=== PATIENT | male | born 1965 | race Caucasian/White ===

== ENCOUNTER → 2018-07-06 | Outpatient (CLI) | payer OTHER | LOC: NUC 07:41 | DX: I25.2 Old myocardial infarction (principal); I25.10 Atherosclerotic heart disease of native coronary artery without angina pectoris; R07.9 Chest pain, unspecified; I10 Essential (primary) hypertension; E78.5 Hyperlipidemia, unspecified ==

== ENCOUNTER → 2019-07-06 | Outpatient (CLI) | payer OTHER ==
[~2019-07-06] VITALS: Ht 157.5 cm; Wt 70.3 kg
[~2019-07-06] MED LIST: ASPIR 8181 MG PO; ASPIRIN EC325 MG PO; ASPIRIN325 PO; ATENOLOL 25 MG25 M1 PO; EZALLOR SPRINKL10 MG PO; ISOSORBIDE MONO30 M1 PO; NITROSTAT0.4 M1 SUBLING; PLAVIX 75 MG TA75 MG PO; PRAVASTATIN SOD40 MG PO; ROSUVASTATIN CA10 MG PO
[2019-07-06 08:49] VITALS: BP 110/57
[2019-07-06 09:22] LABS: HEMATOCRIT 46.6 % (42.0-52.0); HEMOGLOBIN 15.3 gm/dL (14.0-18.0); MCH 29.4 pg (26.0-34.0); MCHC 32.8 g/dL (28.0-37.0); MCV 89.6 fL (80.0-100.0); RBC 5.2 mil/uL (4.50-6.00); RDW 13.1 % (10.5-14.5)
[2019-07-06 09:35] LABS: CALCIUM 8.6 mg/dL (8.5-10.1); CREATININE 0.9 mg/dL (0.7-1.3); POTASSIUM 3.7 mmol/L (3.5-5.1)
--- NOTE | 2019-07-06 13:08 | NUR ---
HR dropping to 39. BP 90/60. Dr. Cotto notified. Pt did take tenormin today.
--- NOTE | 2019-07-10 09:32 | CATHLAB ---
[facility] [address] [place] [address] INVASIVE PROCEDURE REPORT Name: EVAN CASTELLANOS Room #: REG [facility]#: [id number] Admission: 07/06/19 Attend Phys: Rashid Dejesus Discharge: Date of : 67 Report #: [id number] THIS REPORT FOR: //name// APPROVED REPORT Study performed: 07/06/2019 10:25:04 Patient Details Patient Status: Out-Patient Room #: The patient is a 53 year-old male Event Personnel Rashid Cotto Baggage Clerk, Yadi Diaz RN, Kendra Clay RTR Jack Pillai David Monitor Procedures Performed Left Heart Cath w/or w/o Coronaries [id number] [facility], supervision of conscious sedation Indication Unstable angina (>72 hrs to = 7 days) Procedure Narrative The Right Groin^ was infiltrated with 1% Lidocaine subcutaneous anesthesia. A PINNACLE 4FR Sheath #[id number] sheath was inserted into the RFA^. Coronary angiography was performed using coronary diagnostic catheters. The right coronary system was accessed and visualized with a JR44FR 3DRC #[id number] catheter. The left coronary system was accessed and visualized with a JL4 catheter. The left ventricle was accessed and visualized with a PIGTAIL catheter. Left ventricular/Aortic Valve gradient assessed via catheter pullback. Hemostasis was obtained with manual pressure following sheath removal without any complications. There was no hematoma. Intraoperative Conscious Sedation Sedation start time: 10.47 Case end Time: 11.17 Versed 2 mg Fluoro Time: 5.30 minutes Dose: DAP 6371.00 cGycm2 1127 mGy Contrast Type and Amount: Omnipaque 65 ml Coronary Angiography The patient's coronary anatomy is right dominant. [facility] [address] [place] [address] INVASIVE PROCEDURE REPORT Name: EVAN CASTELLANOS Room #: [facility]#: [id number] Admission: 07/06/19 Attend Phys: Rashid Dejesus Discharge: Date of : 67 Report #: [id number] Diagnostic Cath Left Main Left main is normal origin and caliber bifurcates left anterior descending left circumflex is free of high-grade disease. There is a distal tapering of less than 70 % noted at the junction of the circumflex and LAD LAD Small-caliber type II vessel which has proximal portion is stenosis prior to the origin of small first diagonal branch subsequent to that this is an eccentric high-grade lesion which is heavily calcified. The LAD then continues in the anterior interventricular sulcus towards the upper extremities significant small-caliber vessel. Proximally there is a stent that's restenosed stent appears to be greater than 80% proximally with a moderate lesion towards the end of the stent. The first diagonal arises from the stent itself in a less stenosis portion.. Diagonal 1 Small-caliber vessel this proximal lesion does not appear to be hemodynamically significant Circumflex Moderate caliber nondominant vessel has a 50-60% ostial lesion involving the complex distal main and LAD origin lesion previously described. It then continues on in the AV groove giving vessel posterior lateral wall marginal branch after having a 30-40% eccentric lesion identified. There is a small posterior wall vessel. OM1 Moderate caliber vessel with luminal irregularities but no high-grade disease noted Right Coronary Large-caliber dominant vessel coursing the AV groove to the crux of the hardware posterior descending artery originates. It then continues on as a small caliber posterior wall branch artery to AV node. At the acute margin is an eccentric 40-50% lesion at worse noted which is not flow-limiting R PDA Moderate caliber vessel significant high-grade lesions Left Ventriculography Left Ventriculography was not performed. Hemodynamics The aortic pressure is 114/54 mmHg with a mean of 71 mmHg. The left ventricular pressure is 107/14 mmHg with a mean of mmHg. The left ventricular end diastolic pressure is 25 mmHg. There was no gradient across the aortic valve upon pullback. Pullback from the left ventricle to the aorta revealed no gradient across the aortic valve. Conclusion 1. Coronary disease, severe, single vessel involving the left anterior descending distal left main and proximal circumflex [facility] [address] [place] [address] INVASIVE PROCEDURE REPORT Name: EVAN CASTELLANOS Room #: REG [facility]#: [id number] Admission: 07/06/19 Attend Phys: Rashid Dejesus Discharge: Date of : 67 Report #: [id number] arteries 2. Abnormal hemodynamics elevated left ventricular end diastolic pressure Recommendations Cardiac Risk Reduction Program CABG Will optimize anti-atrial regimen until patient can come in for his rib vascularization <ELECTRONICALLY SIGNED> By: Rashid Cotto MD 07/10/19930 0 0 Rashid Cotto MD /INF
== END | disposition home or self-care (01) ==
LOC: CATH 08:09
PROVIDERS: Internal Medicine
DX: I25.110 Atherosclerotic heart disease of native coronary artery with unstable angina pectoris (principal); R06.00 Dyspnea, unspecified; E78.5 Hyperlipidemia, unspecified; Z98.890 Other specified postprocedural states; Z79.899 Other long term (current) drug therapy; Z82.49 Family history of ischemic heart disease and other diseases of the circulatory system; Z79.82 Long term (current) use of aspirin

== ENCOUNTER → 2019-07-17 | Outpatient (CLI) | payer OTHER ==
[~2019-07-17] MED LIST changes: +ADULT LOW DOSE81 MG PO
--- NOTE | 2019-07-17 16:19 | 2DMMODE ---
[facility] [place] [address] 2 D/M-MODE ECHOCARDIOGRAM Name: EVAN CASTELLANOS Room #: REG [facility]#: [id number] Admission: 07/17/19 Attend Phys: Topher Alves MD Discharge: Date of : 67 Report #: [id number] THIS REPORT FOR: //name// APPROVED REPORT Study performed: 07/17/2019 15:24:36 EXAM: Comprehensive 2D, Doppler, and color-flow Echocardiogram Patient Location: Out-Patient Room #: Echo lab 2 Status: routine BSA: 1.79 HR: 48 bpm BP: 112/72 mmHg Rhythm: Bradycardia Other Information Study Quality: Good Indications CAD 2D Dimensions RVDd: 33.64 mm IVSd: 7.63 (7-11mm) LVOT Diam: 19.17 (18-24mm) LVDd: 57.96 mm PWd: 6.64 (7-11mm) Ascending Ao: 27.02 (22-36mm) LVDs: 43.93 (25-40mm) Aortic Root: 28.06 mm IVC: 13.00 mm Volumes Left Atrial Volume (Systole) Single Plane 4CH: 49.10 mL Single Plane 2CH: 65.45 mL LA ESV Index: 36.00 mL/m2 Aortic Valve AoV Peak Sha.: 1.43 m/s AO Peak Gr.: 8.20 mmHg LVOT Max P.65 mmHg LVOT Max V: 1.08 m/s MORENITA Vmax: 2.17 cm2 Mitral Valve E/A Ratio: 1.4 MV Decel. Time: 204.86 ms MV E Max Sha.: 0.71 m/s [facility] [address] [place] [address] 2 D/M-MODE ECHOCARDIOGRAM Name: RIOS OCTAVIANOEVAN S Room #: [facility]#: [id number] Admission: 07/17/19 Attend Phys: Topher Alves MD Discharge: Date of : 67 Report #: [id number] MV A Sha.: 0.50 m/s MV PHT: 59.41 ms IVRT: 147.64 ms Pulmonary Valve PV Peak Sha.: 1.00 m/s PV Peak Gr.: 3.99 mmHg Pulmonary Vein P Vein S: 0.68 m/s P Vein A: 0.48 m/s P Vein D: 0.62 m/s P Vein A Dur.: 120.0 msec P Vein S/D Ratio: 1.10 Tricuspid Valve TR Peak Sha.: 2.52 m/s TR Peak Gr.: 25.37 mmHg PA Pressure: 30.00 mmHg Left Ventricle Left ventricle is borderline dilated. There is hypokinesis in the apical wall. There is normal left ventricular wall thickness. The overall left ventricular systolic function appears normal. LVEF is 50%. The left ventricular diastolic function is abnormal. Right Ventricle The right ventricle is normal size. The right ventricular systolic function is normal. Atria Left atrium is dilated. Right atrium is at the upper limits of normal. Aortic Valve The aortic valve is normal in structure. No aortic regurgitation is present. There is no aortic valvular stenosis. Mitral Valve The mitral valve is normal in structure. Mild mitral regurgitation. No evidence of mitral valve stenosis. Tricuspid Valve The tricuspid valve is normal in structure. There is trace to mild tricuspid regurgitation. Estimated PAP 30 mmHg. There is no pulmonary hypertension. Pulmonic Valve The pulmonary valve is normal in structure. Trace pulmonic [facility] [address] [place] [address] 2 D/M-MODE ECHOCARDIOGRAM Name: GABRIEL LACYBUNNYEVAN Barroso Room #: REG [facility]#: [id number] Admission: 07/17/19 Attend Phys: Topher Alves MD Discharge: Date of : 67 Report #: [id number] regurgitation. Great Vessels The aortic root is normal in size. IVC is normal in size and collapses >50% with inspiration. Pericardium There is no pericardial effusion. <Conclusion> Left ventricle is borderline dilated. LVEF is 50%. Left atrium is dilated. Right atrium is at the upper limits of normal. The aortic valve is normal in structure. The mitral valve is normal in structure. Mild mitral regurgitation. The tricuspid valve is normal in structure. There is trace to mild tricuspid regurgitation. Estimated PAP 30 mmHg. There is no pulmonary hypertension. The pulmonary valve is normal in structure. Trace pulmonic regurgitation. There is no pericardial effusion. <ELECTRONICALLY SIGNED> By: Rashid Cotto MD 07/17/19 1618 1618 1618 Rashid Cotto MD /INF
== END ==
LOC: CV 10:10
DX: Z01.818 Encounter for other preprocedural examination (principal); I08.1 Rheumatic disorders of both mitral and tricuspid valves; I25.119 Atherosclerotic heart disease of native coronary artery with unspecified angina pectoris; I65.29 Occlusion and stenosis of unspecified carotid artery

== ENCOUNTER 2019-07-20 05:44 | Inpatient (IN) | payer OTHER ==
[2019-07-17 14:09] LABS: ABSOLUTE NEUTROPHILS 4.4 thou/uL (1.4-8.2); BASOPHILS 1.2 % (0.0-2.0); EOSINOPHILS 3.8 % (0.0-3.0); HEMATOCRIT 48.4 % (42.0-52.0); HEMOGLOBIN 16.1 gm/dL (14.0-18.0); LYMPHOCYTES 26.1 % (24.0-44.0); MCH 29.6 pg (26.0-34.0); MCHC 33.3 g/dL (28.0-37.0); MCV 88.9 fL (80.0-100.0); MONOCYTES 7.7 % (1.0-8.0); PLATELET COUNT 244 thou/uL (150-400); POLYS 61.2 % (36.0-66.0); RBC 5.45 mil/uL (4.50-6.00); RDW 13.4 % (10.5-14.5); WBC 7.2 thou/uL (4.0-11.0)
[2019-07-17 14:11] LABS: URINE BILIRUBIN NEGATIVE (Negative); URINE BLOOD NEGATIVE (Negative); URINE CLARITY CLEAR; URINE COLOR YELLOW; URINE GLUCOSE-RANDOM* NEGATIVE (Negative); URINE KETONES NEGATIVE (Negative); URINE LEUKOCYTES-REFLEX NEGATIVE (Negative); URINE NITRITE-REFLEX NEGATIVE (Negative); URINE PROTEIN (DIPSTICK) NEGATIVE (Negative); URINE SPECIFIC GRAVITY <= 1.005 (1.005-1.035); URINE UROBILINOGEN 0.2 E.U./dl (0.2-1.0)
[2019-07-17 14:19] LABS: APTT 30.9 Seconds (24.5-32.8); INR 1.1
[2019-07-17 14:21] LABS: ALBUMIN 4.4 g/dL (3.4-5.0); CALCIUM 9.6 mg/dL (8.5-10.1); CREATININE 0.8 mg/dL (0.7-1.3); POTASSIUM 3.9 mmol/L (3.5-5.1); TOTAL BILIRUBIN 0.4 mg/dL (<0.1-1.0); TOTAL PROTEIN 7.9 g/dL (6.4-8.2)
[2019-07-18 00:06] LABS: GLYCOHEMOGLOBIN (HGB A1C) 5.9 % (4.8-5.6)
[~2019-07-20] VITALS: Ht 157.5 cm; Wt 73.9 kg
[2019-07-20] VITALS (28 sets, daily range): BP systolic 92–115; BP diastolic 42–61
[~2019-07-20 05:44] MED LIST changes: -ADULT LOW DOSE81 MG PO
[2019-07-20 12:56] LABS: APTT 28.2 Seconds (24.5-32.8); FIBRINOGEN 135.4 mg/dL (210-360); INR 1.5
[2019-07-20 12:56] LABS: HEMATOCRIT 33.9 % (42.0-52.0); MCH 29.9 pg (26.0-34.0); MCHC 33.4 g/dL (28.0-37.0); MCV 89.7 fL (80.0-100.0); RBC 3.77 mil/uL (4.50-6.00); WBC 14.7 thou/uL (4.0-11.0)
[2019-07-20 12:58] LABS: HEMOGLOBIN 11.3 gm/dL (14.0-18.0)
[2019-07-20 13:15] LABS: POC BE -2 mmol/L (-2.0 to +3.0); POC CA IONIZED 4.4 mg/dL (4.5-5.3); POC GLUCOSE 120 mg/dL (70-99); POC HEMOGLOBIN 10.9 g/dL (14.0-18.0); POC POTASSIUM 5.4 mmol/L (3.5-5.1); POC SODIUM 138 mmol/L (136-145); POC pCO2 53.3 mmHg (35.0-45.0)
[2019-07-20 13:15] LABS: POC BE 0 mmol/L (-2.0 to +3.0); POC CA IONIZED 5.2 mg/dL (4.5-5.3); POC GLUCOSE 154 mg/dL (70-99); POC HCO3 24.9 mmol/L (22.0-26.0); POC HEMOGLOBIN 9.9 g/dL (14.0-18.0); POC POTASSIUM 4.2 mmol/L (3.5-5.1); POC SODIUM 140 mmol/L (136-145); POC pCO2 40.1 mmHg (35.0-45.0); POC pH 7.401 (7.360-7.450)
[2019-07-20 13:15] LABS: POC BE 1 mmol/L (-2.0 to +3.0); POC CA IONIZED 4.3 mg/dL (4.5-5.3); POC GLUCOSE 158 mg/dL (70-99); POC HCO3 27.1 mmol/L (22.0-26.0); POC HEMOGLOBIN 10.9 g/dL (14.0-18.0); POC POTASSIUM 5.6 mmol/L (3.5-5.1); POC SODIUM 137 mmol/L (136-145); POC pCO2 49.2 mmHg (35.0-45.0); POC pH 7.348 (7.360-7.450)
[2019-07-20 13:15] LABS: POC BE 2 mmol/L (-2.0 to +3.0); POC CA IONIZED 4.6 mg/dL (4.5-5.3); POC GLUCOSE 124 mg/dL (70-99); POC HCO3 27.7 mmol/L (22.0-26.0); POC HEMOGLOBIN 13.6 g/dL (14.0-18.0); POC POTASSIUM 4.4 mmol/L (3.5-5.1); POC SODIUM 139 mmol/L (136-145); POC pCO2 47.7 mmHg (35.0-45.0); POC pH 7.372 (7.360-7.450)
[2019-07-20 13:16] LABS: POC BE 0 mmol/L (-2.0 to +3.0); POC CA IONIZED 4.2 mg/dL (4.5-5.3); POC GLUCOSE 187 mg/dL (70-99); POC HEMOGLOBIN 10.5 g/dL (14.0-18.0); POC POTASSIUM 5.2 mmol/L (3.5-5.1); POC SODIUM 139 mmol/L (136-145); POC pCO2 40.2 mmHg (35.0-45.0); POC pH 7.401 (7.360-7.450)
[2019-07-20 13:16] LABS: POC BE -4 mmol/L (-2.0 to +3.0); POC CA IONIZED 2.9 mg/dL (4.5-5.3); POC GLUCOSE 95 mg/dL (70-99); POC HCO3 20.7 mmol/L (22.0-26.0); POC HEMOGLOBIN 10.5 g/dL (14.0-18.0); POC POTASSIUM 2.7 mmol/L (3.5-5.1); POC SODIUM 149 mmol/L (136-145); POC pH 7.405 (7.360-7.450)
[2019-07-20 13:16] LABS: POC BE 2 mmol/L (-2.0 to +3.0); POC CA IONIZED 4.3 mg/dL (4.5-5.3); POC GLUCOSE 173 mg/dL (70-99); POC HCO3 27.3 mmol/L (22.0-26.0); POC HEMOGLOBIN 9.2 g/dL (14.0-18.0); POC POTASSIUM 4.7 mmol/L (3.5-5.1); POC SODIUM 138 mmol/L (136-145); POC pCO2 44.6 mmHg (35.0-45.0); POC pH 7.395 (7.360-7.450)
[2019-07-20 13:46] LABS: BE(vivo) -3.2 mmol/L (-2 to +3); PCO2 39.8 mmHg (35.0-45.0); PO2 144.5 mmHg (80.0-100.0); sO2 98.8 % (92.0-98.0)
[2019-07-20 13:58] LABS: HEMATOCRIT 38.8 % (42.0-52.0); HEMOGLOBIN 12.9 gm/dL (14.0-18.0); MCH 29.6 pg (26.0-34.0); MCHC 33.2 g/dL (28.0-37.0); MCV 88.9 fL (80.0-100.0); RBC 4.36 mil/uL (4.50-6.00); RDW 13.2 % (10.5-14.5); WBC 18.1 thou/uL (4.0-11.0)
[2019-07-20 14:07] LABS: CALCIUM 8.2 mg/dL (8.5-10.1); MAGNESIUM 2.2 mg/dL (1.8-2.4); POTASSIUM 4.1 mmol/L (3.5-5.1)
--- NOTE | 2019-07-20 14:12 | NUR ---
Received consult for diet education. S/P CABG x 4 07/20. Will address nutrition education needs at more appropriate time as pt recovers from surgical intervention
[2019-07-20 14:24] LABS: APTT 28.7 Seconds (24.5-32.8); INR 1.2; PROTIME 12.5 Seconds (9.3-11.4)
--- NOTE | 2019-07-20 14:32 | EKG ---
[place] [address] [facility] [place] [address] ELECTROCARDIOGRAM REPORT Name: RIOSJOHNY BRUMFIELDEVAN S Room #: 242-P ADM IN M.R.#: [id number] Admission: 07/20/19 Attend Phys: Topher Alves MD Discharge: Date of : 67 Report #: [id number] THIS REPORT FOR: //name// [facility] Test Date: 2019-07-20 Test Time: 14:00:56 Pat Name: EVAN BRUMFIELD Department: Room: 242 P Gender: M Ed Special Education Teacher: Salo BUI : 1965 Requested By: Jose Elias Gusman Order Number: [id number] MD: Percy Wong Measurements Intervals [place] Rate: 52 P: 32 CA: 147 QRS: -90 QRSD: 142 T: 40 QT: 511 QTc: 476 Interpretive Statements Sinus rhythm Right bundle branch block Anteroseptal infarct, age indeterminate No previous ECG available for comparison Electronically Signed On 07-20-2019 14:32:11 PROFESSOR OF PATHOLOGY by Percy Wong [email or web address] <ELECTRONICALLY SIGNED> By: Percy Wong MD 07/20/19 1432 1400 1400 Percy Wong MD /LEVI
--- NOTE | 2019-07-20 15:00 | NUR ---
PT ARRIVED IN ICU FROM OR AT 1330, ACCOMPANIED BY OR STAFF, ANESTHESIOLOGIST, AND DR. PARRY. PT CONNECTED TO ICU MONITORS, CHEST TUBES CONNECTED TO -20 SUCTION, ANMOL JEFFER APPLIED, LABS OBTAINED. PROPOFOL GTT OFF AT 1445, PT BEGINNING TO WAKE UP AT THIS TIME, BUT IS STILL EXTREMELY DROWSY.
[2019-07-20 17:26] LABS: BE(vivo) -8.7 mmol/L (-2 to +3); HCO3 15.4 mmol/L (22.0-26.0); PCO2 27.9 mmHg (35.0-45.0); PO2 138.2 mmHg (80.0-100.0); sO2 98.7 % (92.0-98.0)
[2019-07-20 17:55] LABS: PCO2 35.8 mmHg (35.0-45.0); pH 7.342 (7.360-7.450); sO2 98.5 % (92.0-98.0)
--- NOTE | 2019-07-20 18:15 | NUR ---
PT GRADUALLY WOKE UP THROUGHOUT THE AFTERNOON. CPAP TRIAL DONE AND ABGs REPORTED TO DR. PARRY. PT EXTUBATED AT 1805. PT NOW ON FACE SHIELD AT 45% FIO2.
[2019-07-21] VITALS (18 sets, daily range): BP systolic 88–125; BP diastolic 49–74
[2019-07-21 05:33] LABS: HEMATOCRIT 34.6 % (42.0-52.0); HEMOGLOBIN 11.2 gm/dL (14.0-18.0); MCH 29.5 pg (26.0-34.0); MCHC 32.4 g/dL (28.0-37.0); MCV 90.9 fL (80.0-100.0); RBC 3.81 mil/uL (4.50-6.00); RDW 13.4 % (10.5-14.5); WBC 12.3 thou/uL (4.0-11.0)
[2019-07-21 05:55] LABS: CALCIUM 8.5 mg/dL (8.5-10.1); CREATININE 0.9 mg/dL (0.7-1.3); MAGNESIUM 2.2 mg/dL (1.8-2.4); POTASSIUM 3.7 mmol/L (3.5-5.1)
--- NOTE | 2019-07-21 06:44 | NUR ---
No event tonight. Pt remains stable. Up in chair this am, mildly dizziness when got up but symptoms subside after a few minutes. CTs, A-line,[place] nancy and epicardial pacer wires are remain inplace and continue to functions properly. VSS. Continue working toward goals.
--- NOTE | 2019-07-21 08:55 | O ---
[facility] [place] [address] OPERATIVE REPORT Name: EVAN CASTELLANOS Room #: 242-P ADM IN M.R.#: [id number] Admission: 07/20/19 Attend Phys: Topher Alves MD Discharge: Date of : 67 Report #: [id number] THIS REPORT FOR: //name// CC: FAM unknown Topher FERNANDEZMaxUMAETA DATE OF SERVICE: 07/20/2019 PREOPERATIVE DIAGNOSIS: Coronary artery disease. POSTOPERATIVE DIAGNOSIS: Coronary artery disease. OPERATION: Coronary artery bypass x 4 including left internal mammary artery to left anterior descending artery, saphenous vein to ramus and marginal, saphenous vein to posterior descending artery, and endoscopic harvest, left greater saphenous vein. SURGEON: Topher Alves MD IT SENIOR ANALYST: JOSEY Valdez ANESTHESIA: General. INDICATIONS: The patient is a 53-year-old with coronary artery disease. The patient has a history of an anterior myocardial infarct some years ago with stent placement. Unfortunately, there is restenosis of the stent and a complex lesion that involves the left main, circumflex, and ramus. The right coronary has a 40-50% lesion. FINDINGS AND TECHNIQUE: After general anesthesia was established, saphenous vein was harvested using an endoscopic approach and prepared for use as a conduit. Exposure was obtained through median sternotomy. Left internal mammary artery was harvested from chest wall. Pericardial well was made. Cannulation sutures were placed. Heparin was given. Aorta was cannulated. Right atrium was cannulated. Cardioplegia needle was positioned in the aortic root. Retrograde cardioplegic catheter was placed in coronary sinus. Cardiopulmonary bypass was established. The aorta was cross clamped. Antegrade and retrograde cardioplegia were given. Ice was poured into the pericardial well. The heart was stopped. During electromechanical arrest, the distal anastomoses were performed. An end-to-side anastomosis was made between vein and the posterior descending artery. Cold cardioplegia was given. Separate segment of vein was sewn in [facility] [address] [place] [address] OPERATIVE REPORT Name: EVAN CASTELLANOS Room #: 242-P [facility] IN ..#: [id number] Admission: 07/20/19 Attend Phys: Topher Alves MD Discharge: Date of : 67 Report #: [id number] end-to-side fashion to the distal marginal artery. Cold cardioplegia was given. The same segment of vein was sewn in end-to-side fashion to the large ramus intermedius. Cold cardioplegia was given. Left internal mammary artery was sewn in end-to-side fashion to left anterior descending artery. Patency of this vessel was checked with the temperature technique. Cold cardioplegia was given. Two proximal anastomoses were performed. When these were complete, warm retrograde cardioplegia was given. When the patient was warm, he was weaned from cardiopulmonary bypass. Venous cannula was removed. Protamine was given, the aortic cannula was removed. Flow was measured in the bypass grafts. When hemostasis was satisfactory, chest was irrigated with antibiotic solution and closed in the usual fashion. The patient was taken to the Surgical Intensive Care Unit in good condition. All counts reported as correct. <ELECTRONICALLY SIGNED> By: Topher Alves MD 07/21/19 0855 1634 1648 Topher Alves MD /nt
--- NOTE | 2019-07-21 13:49 | NUR ---
PATIENT UP IN THE CHAIR AND C/O PAIN WHEN BREATHING AND WHEN WORKING WITH P.T. VITALS STABLE. SWAN KARSTEN DC'D AND PACER WIRES CAPPED THIS MORNING PER ORDERS. TOLERATING DIET W/O NAUSEA. CHEST TUBES AND INCISIONS DOCUMENTED. DHRUV DRESSING INTACT. A-LINE RT. RADIAL AND MOORE WITH ADEQUATE OUTPUT. WILL CONTINUE WITH POC.
--- NOTE | 2019-07-21 21:30 | NUR ---
Mediastinal CTs drained less than 20 cc per hr x 2 hrs. Removing all sutures and mediastinal CTs w/o any complication indicates. CTs intact, gauzes with pressure applied at sites then covered with tegaderm. He is well meggan procedure well. Will continue to monitor any changes.
--- NOTE | 2019-07-21 21:38 | NUR ---
Received order to remove mediastinal CTs if drain less than 20 ml per hr. Explained procedure to pt and his daughter who spkeaks and understand luxembourgish very well, removed 2 stitches of suture and mediastinal CTs. ABD pad with pressure applied at sites,then applied gauze and transparent over CT sites. No complication during my observation. He is meggan procedure very well.
[2019-07-22] VITALS (18 sets, daily range): BP systolic 85–104; BP diastolic 48–66
[2019-07-22 05:32] LABS: HEMATOCRIT 32.9 % (42.0-52.0); HEMOGLOBIN 10.7 gm/dL (14.0-18.0); MCH 29.5 pg (26.0-34.0); MCHC 32.6 g/dL (28.0-37.0); MCV 90.4 fL (80.0-100.0); RBC 3.64 mil/uL (4.50-6.00); WBC 14.6 thou/uL (4.0-11.0)
[2019-07-22 05:42] LABS: CALCIUM 8.6 mg/dL (8.5-10.1); CREATININE 0.8 mg/dL (0.7-1.3); POTASSIUM 3.7 mmol/L (3.5-5.1)
--- NOTE | 2019-07-22 05:51 | NUR ---
Pt remains stable in this shift. Resting well tonight. Pleural chest tube remains inplaced, no s/sx of any complication indicates. It drain less than 20 ml within 12 hrs. No airleak indicates. C/O pain when taking deep breathe, received pain meds as chart per EMAR. Pain control is adequated this am. VSS. No changes of cardiac rhythms. Continue progressing toward goals.
--- NOTE | 2019-07-22 11:22 | EKG ---
[address] [place] [address] ELECTROCARDIOGRAM REPORT Name: EVAN CASTELLANOS Room #: 242-P ADM IN M.R.#: [id number] Admission: 07/20/19 Attend Phys: Topher Alves MD Discharge: Date of : 67 Report #: [id number] THIS REPORT FOR: //name// [facility] Test Date: 2019-07-21 Test Time: 07:03:54 Pat Name: EVAN BRUMFIELD Department: Room: 242 P Gender: M Rn Urgent Care: HERMINIO : 1965 Requested By: Jose Elias Gusman Order Number: [id number] MD: Percy Wong Measurements Intervals [place] Rate: 60 P: 33 NJ: 139 QRS: 253 QRSD: 144 T: -6 QT: 464 QTc: 464 Interpretive Statements Sinus rhythm Compared to ECG 07/20/2019 14:00:56 Right bundle-branch block no longer present Myocardial infarct finding still present Electronically Signed On 07-22-2019 11:21:32 DISPLAY DESIGNER OUTSIDE by Percy Wong [email or web address] <ELECTRONICALLY SIGNED> By: Percy Wong MD 07/22/19 1121 2 07 Percy Wong MD /EPI
--- NOTE | 2019-07-22 11:26 | EKG ---
[place] [address] [facility] [place] [address] ELECTROCARDIOGRAM REPORT Name: EVAN CASTELLANOS Room #: 242-P ADM IN M.R.#: [id number] Admission: 07/20/19 Attend Phys: Topher Alves MD Discharge: Date of : 67 Report #: [id number] THIS REPORT FOR: //name// [facility] Test Date: 2019-07-22 Test Time: 06:58:28 Pat Name: EVAN BRUMFIELD Department: Room: 242 P Gender: M Manufacturing Recruiter: MEGHANA : 1965 Requested By: Josefina Ontiveros Order Number: [id number] MD: Percy Wong Measurements Intervals [place] Rate: 70 P: 25 VA: 124 QRS: -35 QRSD: 140 T: -1 QT: 475 QTc: 513 Interpretive Statements Sinus rhythm Right bundle branch block Probable anteroseptal infarct, old Compared to ECG 07/20/2019 14:00:56 No significant changes Electronically Signed On 07-22-2019 11:26:13 GAMBLING SUPERVISOR by Percy Wong [email or web address] <ELECTRONICALLY SIGNED> By: Percy Wong MD 07/22/19 1126 0658 0658 Percy Wong MD /EPI
--- NOTE | 2019-07-22 17:22 | NUR ---
assumed care pt at 0700, pt is a GCS of 15. pt has been afibrile with vss. pt with orders to xfer out of ICU, family notified. report called and given to axcepting nurse
--- NOTE | 2019-07-22 20:04 | NUR ---
PT. ARRIVED TO FLOOR AROUND 1600; AOX4; NO C/O PAIN; EDUCATED ABOUT PAIN MANAGEMENT; NO PULLING OR PUSHING; CALLING FOR HELP BEFORE GETTING UP FROM BED; DHRUV DRESSING WORKING; EDUCATED ABOUT CALLING IF FEEL BATTERY VIBRATING; ST. UNDERSTANDING; NO BUBLES NOTICED ON DRAINING; CT SUCTIONING; -20; NO C/O SOB; ASSESSMENT CHARGED; FOLLOWING POC; PASSED ON REPORT;
--- NOTE | 2019-07-23 03:16 | NUR ---
PT VISITING WITH MULTIP;E FAMILY MEMBERS, SPOUSE HAS STATED SHE WILL STAY THE NIGHT, SR PER MONITOR, VSS, REPORT GIVEN TO FLOAT RN AT 2200. TOOK PT BACK AT 0000 WHEN RN TRANSFERED AGAIN, REMINDED PT TO CALL FOR ASSIST AND WHEN PAIN MEDS NEEDED, SPOUSE AT BEDSIDE OFFERING SUPPORT, VSS, CT CON'T TO DRAIN, DRESSINGS CDI WITH SOME PINK DRAINAGE TO MEDISTINAL CT DRESSING, WILL CON'T TO MONITOR PER PPOC.
[2019-07-23 04:45] VITALS: BP 112/80
[2019-07-23 07:40] VITALS: BP 104/61
[2019-07-23 11:30] VITALS: BP 94/57
--- NOTE | 2019-07-23 16:51 | NUR ---
met with patient admits CABG. Patient Sinhala speaking. Multiple family members present. patient works fuul time. Independent with adls practice coordinator. Patient worked with therapy possible HH need at dc or outpatient cardiac rehab. PCP Dr Chris Bills [phone] [facility]. Casemgt following for dc planning.
[2019-07-23 17:00] VITALS: BP 90/52
--- NOTE | 2019-07-23 17:49 | NUR ---
ASSUMED CARE 0700. ALERT X4, WELSH SPEAKING ONLY FAMILY BEDSIDE AND INTERPERATE WELL USING THE ARCHITECT IN TRAINING SERVICES FOR MEDICAL CARE. UP WITH ASSIST X1, STAND BY AMBULATION, USES HEART PILLOW PROPERLY, DENIES CHEST PAIN, DENIES SOB, LEFT DRAIN SITE PAIN MANAGED WITH MEDICATIONS, PICCO DRESSING REINFORCED BY BRUCE DOWLING WHO ALSO REMOVED CHEST DRAIN AND PACING WIRES THIS MORNIG. CONTINUES ON SUPPLEMENTS WITH HIS MEALS, FLUID RESTRICTION IN PLACE 2500CC/24HR. PT AND OT AND CARDIAC MELT HOUSE CENTRIFUGAL OPERATOR WORKED WITH PATIENT THIS SHIFT. LEFT LEG EDEMA NON PITTING TRACE RIGHT ACKLE EDEMA. UP TO CHAIR FOR MEALS. FALL PRECATIONS IN PLACE AND CALLS FOR ASSISTANCE. CONTINUE TO MONITOR.
[2019-07-24 04:45] VITALS: BP 96/63
--- NOTE | 2019-07-24 04:54 | NUR ---
ASSUMED PT CARE AT 1900, PT ALERT AND ORIENTEDX4, AT BEDSIDE,COMPLAINED OF NON-CARDIAC CHEST PAIN EARLIER IN THE SHIFT, MEDICATED PRN WITH COMPLETE RELIEF, ASSESSMENTS CHARTED, SR/BBB ON THE MONITOR, RESTED WELL THROUGH THE NIGHT, WILL CONTINUE TO MONITOR
[2019-07-24 05:16] LABS: HEMATOCRIT 34.1 % (42.0-52.0); HEMOGLOBIN 11.4 gm/dL (14.0-18.0); MCH 30.2 pg (26.0-34.0); MCHC 33.5 g/dL (28.0-37.0); MCV 90.4 fL (80.0-100.0); RBC 3.77 mil/uL (4.50-6.00); RDW 13.2 % (10.5-14.5); WBC 9.3 thou/uL (4.0-11.0)
[2019-07-24 05:17] LABS: CALCIUM 8.7 mg/dL (8.5-10.1); CREATININE 0.9 mg/dL (0.7-1.3); POTASSIUM 3.9 mmol/L (3.5-5.1)
[2019-07-24 07:50] VITALS: BP 97/45
--- NOTE | 2019-07-24 08:39 | EKG ---
[place] [address] [facility] [place] [address] ELECTROCARDIOGRAM REPORT Name: EVAN CASTELLANOS Room #: 208-P ADM IN M.R.#: [id number] Admission: 07/20/19 Attend Phys: Topher Alves MD Discharge: Date of : 67 Report #: [id number] THIS REPORT FOR: //name// [facility] Test Date: 2019-07-24 Test Time: 07:26:18 Pat Name: EVAN BRUMFIELD Department: Room: 208 P Gender: M Project Management Professor: MAGED : 1965 Requested By: Topher Alves Order Number: [id number] MD: Jarret Amador Measurements Intervals [place] Rate: 63 P: 32 GA: 129 QRS: -105 QRSD: 147 T: 34 QT: 517 QTc: 530 Interpretive Statements Sinus rhythm Right bundle branch block Anteroseptal infarct, age indeterminate Compared to ECG 07/22/2019 06:58:28 No significant changes Electronically Signed On 07-24-2019 8:38:46 ALCOHOL RUBBER by Jarret Amador [email or web address] <ELECTRONICALLY SIGNED> By: Jarret Amador MD, [facility] 07/24/1937 5 5 Jarret Amador MD, [facility] /EPI
[2019-07-24 11:40] VITALS: BP 89/61
[2019-07-24] MEDS ORDERED: ADULT LOW DOSE81 MG PO (15:42)
[2019-07-24] MEDS ORDERED: HYDROCODON-ACE1 EAC7 PO (15:43)
--- NOTE | 2019-07-24 16:55 | NUR ---
Spoke with [facility] tenative plan home with no HH care needs. Outpatient cardiac rehab.
[2019-07-24 18:30] VITALS: BP 110/59
--- NOTE | 2019-07-24 19:08 | NUR ---
ASSUMED CARE 0700, ALERT X4, WALKED HALLWAY WITH REHAB NURSE AND PT WITH STAND BY ASSIST. CHEST DRESSINGS ROMOVED AND REPLACED BY PRIMARY NURSE AFTER SHOWER WAS GIVEN BY OT. PAIN WHEN TAKING DEEP BREATH TX WITH PRN MEDICATIONS, DENIES SOB, DENIES CHEST PAIN, LIKEY DC HOME TOMORROW. CALLS FOR ASSISTANCE.
[2019-07-24 20:02] VITALS: BP 107/55
[2019-07-25 04:45] VITALS: BP 98/58
--- NOTE | 2019-07-25 05:28 | NUR ---
ASSUMED PT CARE AT 1900, PT ALERT AND ORIENTEDX4, DAUGHTER AT BEDSIDE, COMPLAINED OF PAIN, MEDICATED PRN WITH PARTIAL RELIEF, STERNAL DRESSING CLEAN DRY AND INTACT, RESTED HROUGH THE NIGHT, WILL CONTINUE TO MONITOR
[2019-07-25 07:30] VITALS: BP 97/59
--- NOTE | 2019-07-25 11:29 | NUR ---
RECEIVED PT'S CARE AROUND 0740; PT. AOX4; ON BED; C/O PAIN OVER L. SIDE WHEN MOVING ARM; CARDIAC REHAB. WORKING WITH PT. EARLY ON THE MORNING; DURING ASSESSMENT C/O PAIN OVER L. SIDE AFTER AMBULATION; PRN PAIN MEDICATION GIVEN WITH AM MEDICATIONS; METOPROLOL HOLD PER ORDER; REQUESTED BENADRYL; MEDICATION GIVEN; D/C ORDERS ON PLACE; SR ON THE HEART MONITOR; BLISTER NOTICED OVER LEG WHEN ASSESSED; EDUCATED ABOUT POSSIBLE ALLERGY TO TAPE; ST. UNDERSTANDING; ASSESSMENT CHARGED; FOLLOWING POC;
[2019-07-25 11:33] VITALS: BP 97/59
== END 2019-07-25 16:44 | disposition home or self-care (01) | DRG 235 ==
LOC: TBA → 2N 05:44 → ICU 05:44 → TBA 09:16 → ICU 13:30 → 2N 07-22 16:56 → ENTRNSPT 07-25 12:05 → EDTRNSPTSTS 07-25 12:07 → 2N 07-25 16:44
PROVIDERS: Physician Assistant; ADMIT Surgery Vascular Surgery
PROC: 02100Z9 Bypass Coronary Artery, One Artery from Left Internal Mammary, Open Approach (ICD-10-PCS; principal; 2019-07-20)
PROC: 021209W Bypass Coronary Artery, Three Arteries from Aorta with Autologous Venous Tissue, Open Approach (ICD-10-PCS; principal; 2019-07-20)
PROC: 5A1221Z Performance of Cardiac Output, Continuous (ICD-10-PCS; principal; 2019-07-20)
PROC: 06BQ4ZZ Excision of Left Saphenous Vein, Percutaneous Endoscopic Approach (ICD-10-PCS; principal; 2019-07-20)
DX: I25.10 Atherosclerotic heart disease of native coronary artery without angina pectoris (principal); J95.821 Acute postprocedural respiratory failure; D62 Acute posthemorrhagic anemia; D72.829 Elevated white blood cell count, unspecified; I10 Essential (primary) hypertension; E78.5 Hyperlipidemia, unspecified; Z79.82 Long term (current) use of aspirin; I25.2 Old myocardial infarction; Z79.899 Other long term (current) drug therapy; Z95.5 Presence of coronary angioplasty implant and graft
CPT/HCPCS: 10078; 10081; 47000; 47001; 47002; 47297; 48888; 50010; 50249; 50409; 50498; 50668; 51301; 52131; 52259; 52314; 53327; 53358; 54118; 56455; 56524; 56525; 56526; 56527; 56528; 56531; 56534; 56668; 56760; 56898; 57093; 57116; 57167; 62110; 62950; 65003; 65020; 65047; 65120; 65135